=== PATIENT | female | born 1970 | race Caucasian/White ===

== ENCOUNTER 2024-07-25 12:08 | Emergency (ER) | payer OTHER, SELFPAY ==
[2024-07-25 12:10] VITALS: BP 126/87
--- NOTE | 2024-07-25 13:29 | ED.GENMED ---
ED Provider Triage
<Sarah Mobley PA-C - Last Filed: 07/25/24 13:30>
-
Patient seen by provider in Triage?: Seen in Triage
Attestation: A medical screening examination has been initiated by a qualified medical provider. Based on the assessment performed at this time, it has been determined that an emergent medical condition may exist and the patient has been informed
that further medical evaluation and possible additional diagnostic testing may be needed.
HPI: 53yoF here with RLQ pain x several days. Now radiating to the hip/low back. Worse with position changes. Also c/o urinary frequency. No fevers. Hx of bilateral oophorectomy.
GENERAL: Alert , in no apparent distress
EYE: No visual abnormalities.
NECK: Trachea midline
ENT: No visible abnormalities.
LUNGS: No acute respiratory distress
NEUROLOGICAL: Alert and oriented
SKIN: Skin intact. No visible changes.
MUSCULOSKELETAL: Moving extremities normally
PSYCH: Normal and appropriate interaction.
This is a medical evaluation conducted in person to initiate diagnostic evaluation and provide initial therapeutics. Please see further documentation by the treating clinician.
CBC, CMP, UA, and CT abdomen ordered.
History of Present Illness
<Sarah Mobley PA-C - Last Filed: 07/25/24 13:30>
General
Chief Complaint: Abdominal Pain
Time Seen by Provider: 07/25/24 14:15
<Alan Mix PA-C - Last Filed: 07/26/24 23:43>
General
Source: patient
Exam Limitations: none
History of Present Illness
History of Present Illness:
53-year-old female with remote history of breast cancer requiring mastectomy and bilateral oophorectomy presents with 3 to 4 days worth of progressively worsening right lower abdominal pain. She describes it as constant in nature with some
radiation to the back. No urinary symptoms. She notes decreased appetite denies a fever. She has been moving her bowels. She has been using ibuprofen without significant relief.
Past History
<Sarah Mobley PA-C - Last Filed: 07/25/24 13:30>
Past History
ED Past Medical History: Other (DVT, PE, breast CA)
ED Past Surgical History: Gynecological
Social History
Tobacco: Non-smoker
Drug: None
Personal:
Living: with family
Phy Exam
<Alan Mix PA-C - Last Filed: 07/26/24 23:43>
Physical Exam
Physical Exam:
General: Well-appearing female no acute respiratory distress
HEENT: Normocephalic atraumatic
Heart: Regular rate and rhythm no murmurs lungs: Clear no wheeze
Abdomen is soft but tender to the right lower quadrant no guarding or rebound normal bowel sounds nondistended
Extremities: No cyanosis
Skin warm no rash
Course
<Sarah Mobley PA-C - Last Filed: 07/25/24 13:30>
Orders/Labs/Results
Orders:
Orders
07/25/24 13:26
Complete Blood Count/With Diff Urgent
Comprehensive Metabolic Panel Urgent
Urine Culture Reflexed from UA [Urinalysis Reflex To Culture] Urgent
Date Specimen was Collected: 07/25/24
Time Specimen was Collected: 13:19
Urine Microscopic Reflex Cult Urgent
07/25/24 13:29
CT Abd/pelvis W Iv Cont Urgent
Comment:
Reason For Exam: RLQ pain
07/25/24 14:33
Ketorolac [Toradol] 15 mg IV NOW STA
07/25/24 15:03
Apixaban [Eliquis] 5 mg PO NOW STA
Diltiazem Extended Release [Cardizem Cd] 120 mg PO NOW STA
Abnormal Lab Results
07/25/24
13:26
MCHC 32.7 L g/dL
(33.0-37.0)
Carbon Dioxide 32 H mmol/L
(22-30)
BUN 18 H mg/dl
(7-17)
Glucose 103 H mg/dl
(70-99)
Ur Occult Blood Reflex 1+ A
(Negative)
Leukocyte Esterase Rfl Trace A
(Negative)
Urine RBC 3-6 A /HPF
(0-2)
Urine Bacteria (Reflex) Few A
(Negative)
07/25/24 13:26
07/25/24 13:26
Vital Signs
Initial and Last Documented VS:
Initial Vital Signs
Temp Pulse Resp BP Pulse Ox
36.9 C 73 16 126/87 99
07/25/24 12:10 07/25/24 12:10 07/25/24 12:10 07/25/24 12:10 07/25/24 12:10
Last Documented Vital Signs
Temp Pulse Resp BP Pulse Ox
36.9 C 65 18 107/83 98
07/25/24 12:10 07/25/24 18:15 07/25/24 18:15 07/25/24 18:15 07/25/24 18:15
Wyattlt;Alan Mix PA-C - Last Filed: 07/26/24 23:43>
Orders/Labs/Results
Orders:
Orders
07/25/24 13:26
Complete Blood Count/With Diff Urgent
Comprehensive Metabolic Panel Urgent
Urine Culture Reflexed from UA [Urinalysis Reflex To Culture] Urgent
Date Specimen was Collected: 07/25/24
Time Specimen was Collected: 13:19
Urine Microscopic Reflex Cult Urgent
07/25/24 13:29
CT Abd/pelvis W Iv Cont Urgent
Comment:
Reason For Exam: RLQ pain
07/25/24 14:33
Ketorolac [Toradol] 15 mg IV NOW STA
07/25/24 15:03
Apixaban [Eliquis] 5 mg PO NOW STA
Diltiazem Extended Release [Cardizem Cd] 120 mg PO NOW STA
Abnormal Lab Results
07/25/24
13:26
MCHC 32.7 L g/dL
(33.0-37.0)
Carbon Dioxide 32 H mmol/L
(22-30)
BUN 18 H mg/dl
(7-17)
Glucose 103 H mg/dl
(70-99)
Ur Occult Blood Reflex 1+ A
(Negative)
Leukocyte Esterase Rfl Trace A
(Negative)
Urine RBC 3-6 A /HPF
(0-2)
Urine Bacteria (Reflex) Few A
(Negative)
07/25/24 13:26
07/25/24 13:26
Vital Signs
Initial and Last Documented VS:
Initial Vital Signs
Temp Pulse Resp BP Pulse Ox
36.9 C 73 16 126/87 99
07/25/24 12:10 07/25/24 12:10 07/25/24 12:10 07/25/24 12:10 07/25/24 12:10
Last Documented Vital Signs
Temp Pulse Resp BP Pulse Ox
36.9 C 65 18 107/83 98
07/25/24 12:10 07/25/24 18:15 07/25/24 18:15 07/25/24 18:15 07/25/24 18:15
<Shaunna Barajas, LSW - Last Filed: 07/25/24 19:03>
Orders/Labs/Results
Orders:
Orders
07/25/24 13:26
Complete Blood Count/With Diff Urgent
Comprehensive Metabolic Panel Urgent
Urine Culture Reflexed from UA [Urinalysis Reflex To Culture] Urgent
Date Specimen was Collected: 07/25/24
Time Specimen was Collected: 13:19
Urine Microscopic Reflex Cult Urgent
07/25/24 13:29
CT Abd/pelvis W Iv Cont Urgent
Comment:
Reason For Exam: RLQ pain
07/25/24 14:33
Ketorolac [Toradol] 15 mg IV NOW STA
07/25/24 15:03
Apixaban [Eliquis] 5 mg PO NOW STA
Diltiazem Extended Release [Cardizem Cd] 120 mg PO NOW STA
Abnormal Lab Results
07/25/24
13:26
MCHC 32.7 L g/dL
(33.0-37.0)
Carbon Dioxide 32 H mmol/L
(22-30)
BUN 18 H mg/dl
(7-17)
Glucose 103 H mg/dl
(70-99)
Ur Occult Blood Reflex 1+ A
(Negative)
Leukocyte Esterase Rfl Trace A
(Negative)
Urine RBC 3-6 A /HPF
(0-2)
Urine Bacteria (Reflex) Few A
(Negative)
07/25/24 13:26
07/25/24 13:26
Vital Signs
Initial and Last Documented VS:
Initial Vital Signs
Temp Pulse Resp BP Pulse Ox
36.9 C 73 16 126/87 99
07/25/24 12:10 07/25/24 12:10 07/25/24 12:10 07/25/24 12:10 07/25/24 12:10
Last Documented Vital Signs
Temp Pulse Resp BP Pulse Ox
36.9 C 65 18 107/83 98
07/25/24 12:10 07/25/24 18:15 07/25/24 18:15 07/25/24 18:15 07/25/24 18:15
<Alan Mix PA-C - Last Filed: 07/26/24 23:43>
MDM/Problems Addressed
Differential Diagnosis Includes:
Patient with right lower abdominal pain. Consider appendicitis versus constipation versus renal colic
Will check labs which include a normal white count of 6.3. CT with IV contrast pending
<Shaunna Barajas LSW - Last Filed: 07/25/24 19:03>
MDM/Problems Addressed
Differential Diagnosis Includes:
Patient with right lower abdominal pain. Consider appendicitis versus constipation versus renal colic
Will check labs which include a normal white count of 6.3. CT with IV contrast pending
6:00 PM:
CT abdomen pelvis with IV contrast radiology report read:
IMPRESSION: The appendix appears normal. No evidence for bowel obstruction or free intraperitoneal air.
Reported history of oophorectomy. No evidence for abnormal pelvic mass.
4 mm cyst in the superior right lobe of the liver.
Copy of CT scan reviewed with patient and she was given a copy. Discussed collapsed gallbladder. Although no acute findings on CT regarding the gallbladder, will refer to GI for further evaluation
<Alan Mix PA-C - Last Filed: 07/26/24 23:43>
*Critical Care Note
Total Time (30-74mins, 75-104mins- exclusive of procedures): Not Applicable
ED Attending Note
<Sarah Mobley PA-C - Last Filed: 07/25/24 13:30>
-
Portions of this chart may have been created with voice recognition software.� Occasional wrong word or��sound alike� substitutions may have occurred due to the inherent limitations of voice recognition software.
Discharge Plan
Departure
Patient Disposition: Home (Routine Discharge)
Date of Disposition: 07/25/24
Time of Disposition: 18:08
Patient with high blood pressure during this ER visit?: No
Condition: Good
Discharge Problem:
Abdominal pain
Instructions: Abdominal Pain
Referrals:
Your, Primary doctor [Other] - Next open appointment
Manuel Araujo, DO [Active] - Call in 1-3 days for appt
UNKNOWN - PT DOES,NOT KNOW [Family Provider] -
Activity Restrictions/Additional Instructions:
As we discussed, your workup here today shows nothing worrisome.
You have tiny bit of blood in urine, this is not alarming and may be transient.
You have an incidental liver cyst. This is benign. Discuss with your primary doctor as you may need follow up imaging to be sure it doesn't change.
Try Ibuprofen 600 mg every 6 hours (with food) for the next 2 days, then as needed, to see if it helps
Call GI doctor's office Sunday a.m and inform of today's visit and make next available appointment.
Return here for vomiting, worsening abdominal pain, fever above 100.5 not relieved with Tyleno or Ibuprofen or feeling sicker in any way
Interventions
Interventions:
*Risk Screen - Suicide Last Done: 07/25/24 12:10
*General Assessment Last Done: 07/25/24 12:10
*Neglect/Abuse Screening Last Done: 07/25/24 18:45
ED- Fall Risk Assessment Last Done: 07/25/24 18:40
*ED COVID-19 Vaccine History Last Done: 07/25/24 12:10
*Nursing Disposition Last Done: 07/25/24 18:45
OM-Lzgots-Sianilmmtu Assessment Last Done: 07/25/24 15:00
Discharge Date and Time
Discharge Date/Time: 07/25/24 18:45
Print Language: BULGARIAN
[2024-07-25 13:42] LABS: % Basophils 0.6 % (0-2); % Immature Granulocytes 0.3 % (0-0.5); % Lymphocytes 29.3 % (20.5-51.1); % Monocytes 6.7 % (1.7-9.3); % Neutrophils 60.1 % (42.2-75.2); Absolute Eosinophils 0.2 10^3/uL (0-0.7); Absolute Lymphocytes 1.8 10^3/uL (1.2-3.4); Absolute Monocytes 0.4 10^3/uL (0.1-0.6); Absolute Neutrophils 3.8 10^3/uL (1.4-6.5); Hematocrit 42.5 % (37.0-47.0); Hemoglobin 13.9 g/dL (12.0-16.0); Mean Corp Hgb Conc. 32.7 g/dL (33.0-37.0); Mean Corpuscular Hgb 29.7 pg (27.0-31.0); Mean Corpuscular Volume 90.8 fL (81.0-99.0); Mean Platelet Volume 9.5 fL (7.4-10.4); Nucleated Red Blood Cells % 0 %; Platelet Count 204 10^3/uL (130-400); Red Blood Cell Count 4.68 10^6/uL (4.20-5.40); Red Cell Dist. Width 12.1 % (11.5-14.5); White Blood Cell Count 6.3 10^3/uL (4.8-10.8)
[2024-07-25 13:44] LABS: Urine Albumin Negative (Neg - Trace); Urine Bilirubin Negative (Negative); Urine Character Clear (Clear); Urine Color Yellow; Urine Glucose Negative (Negative); Urine Ketone Negative (Negative); Urine Leukocyte Trace (Negative); Urine Nitrite Negative (Negative); Urine Occult Blood 1+ (Negative); Urine Urobilinogen Negative (Neg - 1+)
[2024-07-25 13:55] LABS: ALT (SGPT) 27 U/L (0-35); AST (SGOT) 25 U/L (14-36); Albumin 4.7 g/dl (3.5-5.0); Alkaline Phosphatase 41 U/L (38-126); Blood Urea Nitrogen 18 mg/dl (7-17); Calcium 9.8 mg/dl (8.4-10.2); Carbon Dioxide 32 mmol/L (22-30); Chloride 101 mmol/L (98-107); Glucose 103 mg/dl (70-99); Potassium 4.4 mmol/L (3.5-5.1); Sodium 140 mmol/L (135-145); Total Bilirubin 0.7 mg/dl (0.2-1.3); Total Protein 7.3 g/dl (6.3-8.2); eGFR > 60.00
[2024-07-25 14:57] LABS: Urine Bacteria Few (Negative)
[2024-07-25] MEDS: TORADOL 15 MG IV (15:16)
[2024-07-25 15:23] VITALS: BMI 26.8
[2024-07-25 15:24] VITALS: BP 122/72
[2024-07-25 18:15] VITALS: BP 107/83
== END 2024-07-25 18:45 | disposition home or self-care (01) ==
LOC: EMR 12:08
PROVIDERS: Emergency Medicine; EMERGENCY PHYSICIAN Emergency Medicine
DX: R10.31 Right lower quadrant pain (principal)
CPT/HCPCS: 99285; 96374; 74177; 80053; 81003; 81015; 85025; Q9967

== ENCOUNTER 2025-07-31 09:20 | Emergency (ER) | payer OTHER, SELFPAY ==
[2025-07-31 09:25] VITALS: BP 160/104
[2025-07-31 09:51] LABS: Hematocrit 41.9 % (37.0-47.0); Hemoglobin 14.1 g/dL (12.0-16.0); Mean Corp Hgb Conc. 33.7 g/dL (33.0-37.0); Mean Corpuscular Volume 89.7 fL (81.0-99.0); Nucleated Red Blood Cells % 0 %; Platelet Count 223 10^3/uL (130-400); Red Cell Dist. Width 12.2 % (11.5-14.5)
[2025-07-31 10:17] LABS: ALT (SGPT) 28 U/L (0-35); AST (SGOT) 25 U/L (14-36); Albumin 5.1 g/dl (3.5-5.0); Alkaline Phosphatase 56 U/L (38-126); Blood Urea Nitrogen 20 mg/dl (7-17); Calcium 9.6 mg/dl (8.4-10.2); Carbon Dioxide 26 mmol/L (22-30); Chloride 100 mmol/L (98-107); Glucose 117 mg/dl (70-99); Potassium 4.6 mmol/L (3.5-5.1); Sodium 137 mmol/L (135-145); Total Protein 7.9 g/dl (6.3-8.2); eGFR > 60.00
[2025-07-31 10:27] LABS: Troponin I < 0.012 ng/ml
[2025-07-31 11:01] VITALS: BP 118/83
[2025-07-31 11:04] VITALS: BP 126/78
[2025-07-31 11:12] VITALS: BMI 29.0
--- NOTE | 2025-07-31 12:05 | ED.GENMED ---
History of Present Illness
General
Chief Complaint: Chest Pain
Source: patient
Exam Limitations: none
Time Seen by Provider: 07/31/25 11:02
Nursing documentation reviewed up to this point in time: agreed with
History of Present Illness
History of Present Illness:
Patient with history of breast cancer, currently in remission, previous history of pulmonary embolism secondary to right lower leg DVT, currently not on any anticoagulation, presents to ED secondary to persistent/worsening right lower leg pain with
swelling over 2 weeks, along with sudden onset of intermittent midsternal chest pain with sob this morning, similar to symptoms she had when she developed a pulmonary embolism. Chest pain described as sharp, nonradiating, intermittent, without any
alleviating or exacerbating factors. Denies back pain. Denies recent travel or surgery. Denies trauma. Denies recent illness. Denies recent change in medications or diet.
Past History
Past History
ED Past Medical History: Other (DVT, PE, breast CA)
ED Past Surgical History: Gynecological
Social History
Tobacco: Non-smoker
Drug: None
Personal:
Living: with family
Review of Systems
Review of Systems
Allergies reviewed?: Yes
All Other Systems: ROS reviewed and negative except as documented in HPI and ROS
Constitutional: Reports no symptoms
Respiratory: Reports trouble breathing
Cardiac: Reports chest pain
ABD/GI: Reports no symptoms
Musculoskeletal: Reports no symptoms
Skin: Reports no symptoms
Neurological: Reports no symptoms
Phy Exam
Physical Exam
Physical Exam:
Physical Exam
General: no apparent distress, not acutely ill. afebrile
Head: nc/at. eomi
Neck: supple. normal range of motion
Heart: s1/s2 regular rate and rhythm
Lungs: no acute respiratory distress. clear bilaterally
Abdomen: normal bowel sounds. not tender.
Neuro: alert and oriented x 3. no focal neurological deficits
Skin: no rash
Psychiatric: well kept. interactive and cooperative
Extremities: no edema. no calf tenderness.
Scores
Heart Score for Chest Pain Patients
STEMI patient?: Not applicable
Course
Orders/Labs/Results
Orders:
Orders
07/31/25 09:20
Electrocardiogram (*1) Urgent
Reason for Study: Chest Pain
EKG- Treatment ONCE
07/31/25 09:28
Legs, Right US [US Periph Venous LOWER Ext RT] Urgent
Comment:
Reason For Exam: r/o DVT
07/31/25 09:41
Complete Blood Count/With Diff Urgent
Comprehensive Metabolic Panel Urgent
Troponin I Urgent
07/31/25 11:25
CT Chest PE Study Urgent
Comment:
Reason For Exam: cp w hx PE and breast cancer
Abnormal Lab Results
07/31/25
09:41
BUN 20 H mg/dl
(7-17)
Glucose 117 H mg/dl
(70-99)
Albumin 5.1 H g/dl
(3.5-5.0)
07/31/25 09:41
07/31/25 09:41
Vital Signs
Initial and Last Documented VS:
Initial Vital Signs
Temp Pulse Resp BP Pulse Ox
98.5 F 91 16 160/104 98
07/31/25 09:25 07/31/25 09:25 07/31/25 09:25 07/31/25 09:25 07/31/25 09:25
Last Documented Vital Signs
Temp Pulse Resp BP Pulse Ox
98.5 F 78 12 108/81 97
07/31/25 09:25 07/31/25 14:30 07/31/25 14:30 07/31/25 13:00 07/31/25 14:30
MDM/Problems Addressed
MDM/Problems Addressed:
Despite a negative left lower extremity ultrasound, in light of patient's previous history of PE along with history of breast cancer, decision made to obtain CT angiogram to evaluate for pulmonary embolism.
CTA report as well as lower extremity ultrasound report reviewed and discussed with patient. Patient otherwise remains afebrile, hemodynamically stable, and without any acute distress. Patient agrees with plan to be discharged home with
recommendation to follow-up with primary care physician for reevaluation as an outpatient. As patient moved up here from [place] recently, patient agrees to be followed up at close at [facility] for
further care.
*Pulse Oximetry
SaO2: 95
Oxygen Mode of Delivery: Room air
Patient hypoxic: no
*Critical Care Note
Total Time (30-74mins, 75-104mins- exclusive of procedures): Not Applicable
ED Attending Note
-
Portions of this chart may have been created with voice recognition software.� Occasional wrong word or��sound alike� substitutions may have occurred due to the inherent limitations of voice recognition software.
Discharge Plan
Departure
Patient Disposition: Home (Routine Discharge)
Date of Disposition: 07/31/25
Time of Disposition: 14:25
Patient with high blood pressure during this ER visit?: Yes
Condition: Fair
Discharge Problem:
Leg pain, Chest pain
Instructions: Chest pain (DC)
Referrals:
[facility] [Outside]
Activity Restrictions/Additional Instructions:
As discussed, please follow-up with referred [facility] clinic for further evaluation and treatment. You will be receiving phone call from the clinic with an appointment date.
Interventions
Interventions:
*General Assessment Last Done: 07/31/25 11:07
*Neglect/Abuse Screening Last Done: 07/31/25 09:27
*ED COVID-19 Vaccine History Last Done: 07/31/25 11:07
*ED Influenza Vaccine History Last Done: 07/31/25 11:07
[facility] Fall Risk Assessment Tool Last Done: 07/31/25 11:12
*Risk Screen - Suicide (C-SSRS) Last Done: 07/31/25 09:27
*Nursing Disposition Last Done: 07/31/25 15:16
ED- Cardiac Assessment Last Done: 07/31/25 11:07
Discharge Date and Time
Discharge Date/Time: 07/31/25 15:17
Print Language: OCCITAN
[2025-07-31 12:24] VITALS: BP 128/70
[2025-07-31 13:00] VITALS: BP 108/81
== END 2025-07-31 15:17 | disposition home or self-care (01) ==
LOC: EMR 09:20
PROVIDERS: Emergency Medicine; EMERGENCY PHYSICIAN Emergency Medicine; FAMILY PHYSICIAN Family Medicine
DX: R07.89 Other chest pain (principal); M79.604 Pain in right leg; Z85.3 Personal history of malignant neoplasm of breast; Z86.711 Personal history of pulmonary embolism; Z86.718 Personal history of other venous thrombosis and embolism
CPT/HCPCS: 99284; 71275; 80053; 84484; 85025; 93005; 93971; Q9967